=== PATIENT | female | born 1995 | race Hispanic/Latino ===

== ENCOUNTER 2022-11-18 17:16 | Emergency (ER) | payer OTHER ==
[~2022-11-18] VITALS: Ht 157.5 cm; Wt 64.9 kg
[2022-11-18 17:22] VITALS: BP 141/82
[2022-11-18] MEDS ORDERED: CYCLOBENZAPRINE HCL 10 MG TABLET PO ONE (18:00)
[2022-11-18] MEDS ORDERED: LIDOCAINE 5% TOPICAL PATCH TP ONE (18:00)
[2022-11-18] MEDS ORDERED: ACETAMINOPHEN 500 MG TABLET PO ONE (18:00)
[2022-11-18] MEDS ORDERED: KETO10TA2 PO (18:12)
[2022-11-18] MEDS ORDERED: LIDO1ADH82 TP (18:12)
[2022-11-18] MEDS ORDERED: CYCL5TAB PO (18:12)
== END 2022-11-18 18:51 | disposition home or self-care (01) ==
LOC: EDH 17:16
DX: M62.838 Other muscle spasm (principal); M62.830 Muscle spasm of back; Y92.410 Unspecified street and highway as the place of occurrence of the external cause

== ENCOUNTER 2024-08-02 03:12 | Emergency (ER) | payer BC, OTHER ==
[~2024-08-02] VITALS: Ht 157.5 cm; Wt 56.7 kg
[~2024-08-02 03:12] MED LIST: CYCL5TAB3 PO; KETO10TA2 PO; LIDO1ADH82 TP
[2024-08-02 03:36] VITALS: BP 127/83; PULSE 67; RESP 18; TEMP 97.4; O2SAT 99
--- NOTE | 2024-08-02 04:05 | NUR ---
[facility] [employer] AT [employer]. PATIENT REPORTED SHE WOULD LIKE TO BE LEAVING AGAINST MEDICAL ADVICE, STATED SHE WILL BE FOLLOWING UP WITH HER MANAGER [employer]. PATIENT WAS EDUCATED ON AND VERBALIZED UNDERSTANDING AOUBT THE RISKS AND CONSEQUENCES INVOVLED IN LEAVING THE HOSPITAL AT THIS TIME, THE BENEFITS OF CONTINUED TREATMENT AND HOSPITLIZATION. PATIENT ADVISED TO SEEK EMERGENCY HELP IF NEEDED, FOLLOW UP WITH PCP. PATIENT IS IN NO DISTRESS AT THIS TIME
[2024-08-02 04:07] LABS: APPEARANCE,URINE CLOUDY (CLEAR); BILIRUBIN,URINE NEGATIVE (NEGATIVE); COLOR,URINE LIGHT-YELLOW (YELLOW); GLUCOSE, URINE (UA) NEGATIVE (NEGATIVE); KETONES,URINE NEGATIVE (NEGATIVE); LEUKOCYTE ESTERASE ,URINE NEGATIVE Leu/uL (NEGATIVE); NITRATE,URINE NEGATIVE (NEGATIVE); OCCULT BLOOD,URINE LARGE (NEGATIVE); PROTEIN,URINE NEGATIVE (NEGATIVE); UROBILINOGEN,URINE 0.2 mg/dL (0.2-1.0)
--- NOTE | 2024-08-02 04:14 | ERN ---
ED Note History of Present Illness Stated Complaint: ABDOMINAL PAIN, BACK PAIN Chief Complaint: Vaginal Problems/Bleeding Time Seen by Midlevel: 04:08 Dictation: The patient is a 28-year-old female with a history of uterine fibroids who presents to the emergency department with pelvic pain , vaginal bleeding onset yesterday. Patient reports also burning urination. Patient reports she had an ultrasound down a week ago and was told she had uterine fibroids which she is scheduled to have surgery on Wednesday. Denies any . Denies fevers, nausea or vomiting. Patient reports she has not saturated any pads in the last hour. And bleeding was only minimal Allergies: Coded Allergies: No Known Drug Allergies (Unverified Allergy, Intermediate, 11/18/22) Home Meds Active Scripts Ketorolac Tromethamine (Ketorolac Tromethamine) 10 Mg Tablet, 10 MG PO Q6HPRN PRN for PAIN for 4 Days, #16 TAB Prov:LEONOR CHRISTENSEN NP 11/18/22 Lidocaine (Lidocaine) 1 Each Adh..patch, 1 EACH TP BID for 15 Days, #30 ADH.PATCH Prov:LEONOR CHRISTENSEN NP 11/18/22 Cyclobenzaprine HCl (Cyclobenzaprine HCl) 5 Mg Tablet, 5 MG PO Q8H for spasm pain for 7 Days, #21 TAB Prov:LEONOR CHRISTENSEN NP 11/18/22 Past Medical History Past Medical History: Anxiety, Uterine Fibroids Additional Past Medical Hx: PTSD Surgical History: None RN Note Reviewed/Agreed w/PFSH: Yes Review of System Dictation Constitutional: Negative for fever,chills, and weight loss Eyes: Negative for injury, pain,redness, and discharge ENT: Negative for injury,pain or swelling Cardiovascular: Negative for chest pain, palpitations, and edema Respiratory: Negative for shortness of breath, cough, and wheezing, Abdomen/GI: Negative for nausea, vomiting, diarrhea, and constipation positive for pelvic pain Back: Negative for injury and pain : Negative for injury, bleeding and discharge MS/Extremity: Negative for injury and deformity Skin: Negative for rash, and discoloration Neuro: Negative for headache, weakness, numbness, tingling, and seizure Psych: Negative for suicide ideation, homicidal ideation, and hallucinations Initial Vital Sign VS Vital Signs Date Time Temp Pulse Resp B/P (MAP) Pulse Ox O2 Delivery O2 Flow Rate FiO2 2/12/25 03:28 97.3 67 18 127/84 99 Room Air 0 08/02/24 03:36 21 Physical Exam Dictation Vital Signs reviewed General Appearance: Alert, oriented x 3, no acute distress, well developed, n ourished. Head and Face: non-traumatic. Eyes: PERRL, pink conjunctivas, eyelid no trauma, anterior chamber with arcus senilis. Ears: Pinnas intact and no signs of trauma or erythema ear canals clear and no discharge TM no erythema Nose: No discharge, no bleeding. Oropharynx: Mouth normal, tongue pink. pharynx clear,no erythema, tonsils no exudates, no abscesses noted, mucous m embrane moist Neck: Supple, non-tender, no thyromegaly, no masses, no JVD, no bruits Breast:Deferred Chest:No tenderness, no crepitus, no paradoxical movement, no retractions Lungs:Clear, well-ventilated, symmetric, no rales, no wheezing, no rhonchi, no stridor, good breath sounds bilaterally Heart: Regular rate, regular rhythm, no murmur, no gallops Vascular: no peripheral edema, Abdomen: Soft, positive bowel sounds, nondistended, no guarding, nontender, no rebound, no masses no hepatomegaly, no splenomegaly, no Stafford's sign, no hernias. Rectal: Deferred Genital: Deferred Neurological: Normal speech, motor function intact, sensory function intact Musculoskeletal: Neck nontender, full range of motion, back nontender, full range of motion, Extremities: nontender, full range of motion Skin: Color pink, dry, no turgor, no rash, no lacerations, no abrasions, no contusions. Lymphatic: Deferred ED Course ED Course Orders Procedure Category Date Status Time Urinalysis Profile LAB 08/02/24 In Process 03:39 ,Urine Test LAB 08/02/24 In Process 03:39 Basic Metabolic Panel LAB 08/02/24 Logged 03:45 Cbc With Differential LAB 08/02/24 Logged 03:45 Vital Signs Date Time Temp Pulse Resp B/P (MAP) Pulse Ox O2 Delivery O2 Flow Rate FiO2 08/02/24 03:36 97.3 67 18 127/83 99 Room Air* 0 21 08/02/24 03:28 97.3 67 18 127/84 99 Room Air 0 Medical Decision Making [facility] The patient is a 28-year-old female with a history of uterine fibroids who presents to the emergency department with pelvic pain , vaginal bleeding onset yesterday. Patient reports also burning urination. Patient reports she had an ultrasound down a week ago and was told she had uterine fibroids which she is scheduled to have surgery on Wednesday. Denies any . Denies fevers, nausea or vomiting. Patient reports she has not saturated any pads in the last hour. And bleeding was only minimal Patient reported she does not want any labs or imaging done. At this time patient does not want in a have any further evaluation and would like to leave AMA. Labs and imaging discussed with the patient. Patient reports that she already has a scheduled surgery on Wednesday and will follow up with her OBGYN DX & DISP Disposition: AMA Departure Condition: Stable Referrals: Maribeth GONZALES MD (PCP) CHRISTIAN HICKS Aug 02, 2024 04:14
[2024-08-02 04:27] LABS: ADD UA MICROSCOPIC YES
[2024-08-02 04:32] LABS: BACTERIA,URINE Rare /HPF (None Seen); RBC,URINE 0-1 /HPF (0-1)
[2024-08-02 04:33] LABS: MUCUS,URINE Rare LPF (None Seen); SQUAMOUS EPITHELIAL CELL,UR Moderate /HPF (0-2)
== END 2024-08-02 04:10 | disposition left against medical advice (07) ==
LOC: EDH 03:12
DX: R10.2 Pelvic and perineal pain (principal); N93.9 Abnormal uterine and vaginal bleeding, unspecified; F41.9 Anxiety disorder, unspecified; Z79.899 Other long term (current) drug therapy
CPT/HCPCS: 81001; 81025; 99283